=== PATIENT | female | born 1960 | race Caucasian/White ===

== ENCOUNTER 2020-07-21 09:48 | Outpatient (CLI) | payer BC ==
--- NOTE | 2020-07-24 09:51 | Mammography Report ---
BILATERAL DIGITAL SCREENING MAMMOGRAM 3D/2D: 07/21/2020 CLINICAL: Routine screening. Baseline exam. No prior exams were available for comparison. The tissue of both breasts is predominantly fatty. No significant masses, calcifications, or other findings are seen in either breast. IMPRESSION: NEGATIVE There is no mammographic evidence of malignancy. A 1 year screening mammogram is recommended. This exam was interpreted at Station ID: [id number]. NOTE: For mammograms, a report in lay terms will be sent to the patient. Approximately 15% of breast malignancies will not be visualized mammographically. In the management of a palpable breast mass, a negative mammogram must not discourage biopsy of a clinically suspicious lesion. Electronically Signed By: Yousif Senior acr/penrad:07/21/2020 13:01:57 ACR BI-RADS Category 1: Negative 3341F PARENCHYMAL PATTERN: (F) - The breast(s) demonstrate(s) diffuse fatty replacement. BI-RADS CATEGORY: (1) - 1 RECOMMENDATION: (ANNUAL) - Recommend routine annual screening mammography. [id number] 1 year screening LATERALITY: (B)
== END 2020-07-21 09:49 | disposition home or self-care (01) ==
LOC: DI 09:48
DX: Z12.31 Encounter for screening mammogram for malignant neoplasm of breast (principal)

== ENCOUNTER 2020-07-28 12:14 | Outpatient (CLI) | payer BC | END 2020-07-28 12:15 | disposition home or self-care (01) | LOC: COV 12:14 | PROVIDERS: ATTEND Internal Medicine Cardiovascular Disease | DX: Z01.812 Encounter for preprocedural laboratory examination (principal); Z20.822 Contact with and (suspected) exposure to COVID-19 ==

== ENCOUNTER 2020-08-29 09:07 | Day surgery (SDC) | payer BC ==
[2020-08-29] MEDS ORDERED: LACTATED RINGERS 1,000 ML IV ONE ×2 (09:14→10:37)
--- NOTE | 2020-08-29 10:04 | ANESTHESIA ---
Pre-Anesthesia VS, & Labs - Diagnosis screening - Procedure colonoscopy Vital Signs: Temp Pulse Resp BP Pulse Ox 36.3 C L 91 12 124/78 97 08/29/20 09:33 08/29/20 09:33 08/29/20 09:33 08/29/20 09:33 08/29/20 09:33 Height: 5 ft 6 in Weight (kg): 78.9 kg Body Mass Index: 28.0 BMI Classification: Overweight - NPO >8 hours - Is Patient ?: No Home Medications and Allergies Home Medications: Ambulatory Orders Metoprolol Tartrate [Lopressor] 12.5 mg PO DAILY 08/28/20 Pantoprazole [Protonix] 40 mg PO DAILY 08/28/20 Rivaroxaban [Xarelto] 20 mg PO DAILY 08/28/20 Thyroid,Pork [[place] Thyroid] 90 mg PO DAILY 08/28/20 Metoprolol Tartrate [Lopressor] 12.5 mg PO DAILY 08/28/20 Pantoprazole [Protonix] 40 mg PO DAILY 08/28/20 Rivaroxaban [Xarelto] 20 mg PO DAILY 08/28/20 Thyroid,Pork [[place] Thyroid] 90 mg PO DAILY 08/28/20 Allergies/Adverse Reactions: Allergies Allergy/AdvReac Type Severity Reaction Status Date / Time No Known Drug Allergies Allergy Verified 08/29/20 09:42 Anes History & Medical History - Anesthetic History Anesthesia Complications: reports: No previous complications - Medical History Cardiovascular: reports: Atrial fibrillation Pulmonary: reports: None Gastrointestinal: reports: GERD Endocrine/Autoimmune: reports: HyPOthyroidism History of Cancer?: No - Surgical History General: reports: Other (piloniodal cyst) Cardiothoracic: reports: Other Gynecologic: reports: Tubal ligation, Other Dermatologic: reports: Other Exam General: Alert Dental: WNL Mouth Opening: Greater than 4 Fingerbreadths Neck Mobility: Normal Mallampati classification: I Thyromental Distance: greater than 6 cm Respiratory: Lungs clear Cardiovascular: Regular rate Plan Anesthesia Type: Total IV Consent for Procedure(s) Verified and Reviewed: Yes Code Status: Attempt Resuscitation ASA classification: 3-Severe systemic disease Is this case an emergency?: No
[2020-08-29] MEDS ORDERED: PROPOFOL 200 MG/20 ML VIAL IVP ONE (10:15)
--- NOTE | 2020-08-29 10:44 | ANESTHESIA POST OP EVALUATION ---
Anesthesia Post Eval - Post Anesthesia Eval Vitals: Last Vital Signs Temp 36 C L 08/29/20 10:37 Pulse 71 08/29/20 10:37 Resp 17 08/29/20 10:37 BP 98/60 08/29/20 10:37 Pulse Ox 100 08/29/20 10:37 CV Function Including HR & BP: Stable Pain Control: Satisfactory Nausea & Vomiting: Negative Mental Status: Baseline Respiratory Status: Airway Patent Hydration Status: Satisfactory Anesthesia Complications: None
[2020-08-29 11:35] VITALS: BP 120/62
== END 2020-08-29 09:08 | disposition home or self-care (01) ==
LOC: SDS 09:07
PROVIDERS: ATTEND Surgery
DX: Z12.11 Encounter for screening for malignant neoplasm of colon (principal); K57.30 Diverticulosis of large intestine without perforation or abscess without bleeding; K64.8 Other hemorrhoids; K64.4 Residual hemorrhoidal skin tags
CPT/HCPCS: 45378; J7120

== ENCOUNTER 2020-10-18 16:49 | Outpatient (CLI) | payer BC ==
[2020-10-18 17:14] LABS: ALBUMIN 4.2 g/dL (3.2-5.5); BILIRUBIN,DIRECT 0.1 mg/dL (0.1-0.5); BILIRUBIN,TOTAL 0.8 mg/dL (0.2-1.0); TOTAL PROTEIN 7.1 g/dL (6.7-8.2)
== END 2020-10-18 16:50 | disposition home or self-care (01) ==
LOC: LAB 16:49
PROVIDERS: ATTEND Physician Assistant
DX: B35.1 Tinea unguium (principal)
CPT/HCPCS: 36415; 80076

== ENCOUNTER 2020-11-17 10:31 | Outpatient (CLI) | payer BC ==
[2020-11-17 11:09] VITALS: BP 98/67
--- NOTE | 2020-11-17 11:09 | SLEEP CARE CONSULTATION ---
Information from patient questionnaire entered by Stella Fulton. I have reviewed and concur with the information entered by Stella Fulton. This document represents the service I personally performed and the decisions made by me, Yudy Ruiz ARNP. History of Present Illness Service Date and Time: 11/17/2020 1031 Reason for Visit: New patient Chief Complaint: reports: Unrefreshed sleep, Frequent awakenings at night. denies: Observed pauses in breathing Date of Onset: 10 years Usual bedtime: 2300 Time it takes to fall asleep: 15 minutes Snores at night: No Observed to quit breathing while asleep: No Number of times waking at night: 1-4 Reasons for waking at night: reports: Snoring (snorting occasionally), Bathroom, Other (noise) Toss, Turn, or Twitch while sleeping: Yes Recalls having dreams: Yes Usually gets out of bed at: 0800 Feels refreshed in the morning: Yes (sometimes) Morning headache: No Sleepy or fatigued during the day: No Ever fallen asleep while driving: Yes (drowsy driving but no accidents) Takes day naps: No Prior sleep studies: No Additional HPI information: I had the pleasure of seeing EDWARD KIM today regarding the possibility of her having a sleep disorder. Her current complaints are unrefreshed sleep and frequent night awakenings. She has history of atrial fibrillation post ablation. She was discussing her feeling unrefreshed sleep with her process control supervisor and was referred here. She lives alone so she does not have someone to witness apneas or snoring. Her friends have told her she does not snore. She has occasional times she wakes up to a snort. - Parasomnia Symptoms Ever been unable to move upon waking from sleep: No Walks in sleep: No Talks in sleep: No Ever acted out dreams in sleep: No Ever felt weak in the knees when startled or emotional: No Bothered by creepy, crawly, restless sensations in legs: No Problems with memory or concentration: Yes (little bit of both, thinks age related) Subjective Initial [place] Sleepiness Scale score: 9 (in 2020) Past Medical History Past Medical History: reports: Arrythmia, Hypothyroidism, Anxiety, Depression, Other (atrial fibrillation) Social History The patient's occupation is a SE. Patient is Single and lives in [place]. Have you smoked in the past 12 months: No Cigarettes per day (20/pack): 1 Years of smokin Smoking Pack Years: 0 Alcohol use: Yes Alcohol amount and frequency: 1 glass wine, 0-3 times/week Caffeine use: No Family History Family history of sleep disordered breathing: Yes Family Hx Sleep Apnea: Sibling: Snoring Allergies and Home Medications Drug allergies reviewed: Yes (NKDA) Home medication list reviewed: Yes Allergy and home medication list: Xarelto 20 mg 1 x day [place] Thyroid 30 mcg 3 daily Terbinafine 250 mg 1 daily Melatonin 5 mg daily Review of Systems Cardiovascular: reports: palpitations, irregular heart rate or pulse Gastrointestinal: denies: heartburn Neurological: denies: headaches Psychiatric: reports: anxiety, depression Ear/Nose/Throat: reports: wisdom teeth removed. denies: sinus problems, tonsillectomy Endocrine: reports: thyroid disease Immunologic: reports: allergies to food or environment (gluten intolerant) Physical Exam Blood Pressure: 98/67 Cuff size: wrist Heart Rate: 89 O2 Saturation: 98 Height: 5 ft 6 in Weight: 166 lb Body Mass Index: 26.8 BMI Classification: Overweight Neck circumference: 13.25 (inches) Mouth and throat: narrow oropharynx Soft palate: long Hard palate: arched Uvula: normal Uvula visualization: 50% Mallampati Class II Tongue: enlarged in size with teeth díaz on lateral edges Tonsils: 2+ Neck: normal w/o lymphadenopathy or thyromegaly Heart: regular rate and rhythm Lungs: clear bilaterally Impression and Plan 1. Suspected Obstructive Sleep Apnea-Hypopnea Syndrome, as frequent awakening during the night, unrefreshed sleep, and cognitive impairment. Patient has a history of atrial fibrillation, anxiety and depression. Narrow oropharynx and obesity are common predisposing factors for obstructive sleep apnea-hypopnea syndrome. I recommend proceeding to polysomnography to confirm the diagnosis and to assess severity. If the patient has significant sleep disordered breathing, a manual CPAP titration study will also be performed to find the optimal treatment pressure. I informed the patient of what the sleep studies involve and after some discussion, obtained agreement to proceed. The pathophysiology of obstructive sleep apnea-hypopnea syndrome was discussed with the patient and health risks of cardiovascular and cerebrovascular disease if not treated. Risks of drowsy driving discussed in detail and patient advised to avoid long distance driving and to bone char puller at the first sign of drowsiness. Patient agreed to plan. * Schedule polysomnography +- manual CPAP titration study and return in 1-2 weeks after the study to discuss result and initiate therapy. * Avoid long distance driving or driving when feeling sleepy. * Avoid alcohol, sedative and muscle relaxant around bedtime. * Attempt to lose weight. * Review instructions provided by trained office staff on how to prepare for the sleep study. * Return for follow-up after sleep study completed. Counseling Topics: Weight loss health impact Visit Type: In Office Time Spent with Patient (minutes): 31 Provider Statement: I spent 100% of the Face to Face Visit with the patient with greater than 50% spent counseling the patient and coordination of care.
== END 2020-11-17 10:32 | disposition home or self-care (01) ==
LOC: SC 10:31
PROVIDERS: ATTEND Nurse Practitioner Family
DX: G47.8 Other sleep disorders (principal); R41.89 Other symptoms and signs involving cognitive functions and awareness
CPT/HCPCS: 99203; 99212

== ENCOUNTER 2020-12-06 13:27 | Outpatient (CLI) | payer BC ==
[2020-12-06 14:00] LABS: ALBUMIN 4.2 g/dL (3.2-5.5); BILIRUBIN,DIRECT 0.1 mg/dL (0.1-0.5); BILIRUBIN,TOTAL 0.8 mg/dL (0.2-1.0); TOTAL PROTEIN 7.4 g/dL (6.7-8.2)
== END 2020-12-06 13:28 | disposition home or self-care (01) ==
LOC: LAB 13:27
PROVIDERS: ATTEND Physician Assistant
DX: B35.1 Tinea unguium (principal)
CPT/HCPCS: 36415; 80076

== ENCOUNTER → 2020-12-13 | Outpatient (CLI) | payer BC | LOC: SC 12-12 09:39 | PROVIDERS: ATTEND Nurse Practitioner Family | DX: G47.8 Other sleep disorders (principal); R41.89 Other symptoms and signs involving cognitive functions and awareness | CPT/HCPCS: 95806 ==

== ENCOUNTER 2020-12-21 09:26 | Outpatient (CLI) | payer BC ==
--- NOTE | 2020-12-21 09:57 | SLEEP CARE CONSULTATION ---
Information from patient questionnaire entered by Nghia Light MA. I have reviewed and concur with the information entered by Nghia Light MA. This document represents the service I personally performed and the decisions made by Sara mo Caren J, ARNP. History of Present Illness Service Date and Time: 12/21/2020 0926 Initial [place] Sleepiness Scale score: 9 (in 2020) Current [place] Sleepiness Scale score: 4 (in 2020) Additional HPI information: EDWARD KIM returns for follow up and results of the recently performed home sleep study. The patient was informed of the following findings: No significant sleep disordered breathing with an average AHI of 3.1 and eros oxygen saturation of 86%. I explained the pathophysiology behind obstructive sleep apnea. Patient does not have sleep apnea and was advised how weight gain could increase the risk of developing sleep apnea in the future. I strongly encouraged the patient to lose weight. Sleep Study - Results Type of Sleep Study: Home sleep study Prior sleep studies: No Polysomnography/Home Sleep Study results: Physician Impression: The quality of the study is good. The length of the study is adequate (> 240 minutes). Please also see the tabulated and graphic data. 1. No significant sleep disordered breathing, with an AHI of 3.1/hr and eros SaO2 of 86%. During the study, the patient had 6 apneas (6 obstructive, 0 central, 0 mixed) and 19 hypopneas. The longest episode lasted 92.5 seconds. The few respiratory events occurred more frequently during supine sleep (supine AHI was 4.6 and non-supine, 0.34). 2. Hypoxemia (ICD-10 R09.02), mild, with the lowest oxygen saturation of 86 % and 22.4 minutes with SaO2 under 90%. Baseline oxygen saturation was normal (Average oxygen saturation was 93%). Time with oxygen saturation at or below 88% was 6.2 minutes. Allergies and Home Medications Home medication list reviewed: Yes (no changes) Review of Systems Review of systems same as previous: Yes (no changes) Physical Exam Vital signs obtained and entered by: Mildred Light CMA Blood Pressure: 109/72 (left) Cuff size: wrist Heart Rate: 74 O2 Saturation: 99 (with mask) Height: 5 ft 6 in Weight: 163 lb (without boots) Body Mass Index: 26.3 BMI Classification: Overweight Impression and Plan 1. Hypoxemia, mild, with the lowest oxygen saturation of 86 % and 22.4 minutes with SaO2 under 90%. Her baseline oxygen saturation was normal with an average oxygen saturation of 93%. Time with oxygen saturation at or below 88% was 6.2 minutes. Recommendation for further evaluation of mildly low baseline oxygen saturation by primary provider or compensation specialist. Patient does have a history of atrial fibrillation post ablation that did not work. Her compensation specialist sent her here to rule out underlying sleep disordered breathing. Patient will return to her compensation specialist for further evaluation. * Follow up with compensation specialist for low oxygen saturation during HST * Attempt to lose weight * Avoid alcohol consumption near bedtime * The patient is cautioned about driving until sleepiness is completely resolved. * Return as needed. Counseling Topics: Weight loss health impact Follow up with: Assistant Purchasing Manager Visit Type: In Office Time Spent with Patient (minutes): 16 Provider Statement: I spent 100% of the Face to Face Visit with the patient with greater than 50% spent counseling the patient and coordination of care.
[2020-12-21 09:58] VITALS: BP 109/72
== END 2020-12-21 09:27 | disposition home or self-care (01) ==
LOC: SC 09:26
PROVIDERS: ATTEND Nurse Practitioner Family
DX: R09.02 Hypoxemia (principal)
CPT/HCPCS: 99212